=== PATIENT | female | born 1970 | race Caucasian/White ===

== ENCOUNTER → 2021-08-19 | Outpatient (CLI) | payer MEDICARE ==
[~2021-08-19] MED LIST: AMLODIPINE BESY10 MG PO; COLACE100 MG PO; DITROPAN 5 MG TA5 MG PO; FOLIC ACID 1 MG1 MG PO; LORTAB 7.5-3251 EACH PO; NADOLOL80 MG PO; PROTONIX40 MG PO; SEROQUEL300 MG PO; SIMVASTATIN20 MG PO; SYNTHROID25 MCG PO; TOPAMAX200 MG PO; VITAMIN D22000 UNIT PO
== END ==
LOC: EXRD 09:10
DX: M79.641 Pain in right hand (principal); M79.89 Other specified soft tissue disorders
CPT/HCPCS: 73110; 73130

== ENCOUNTER → 2021-09-09 | Outpatient (CLI) | payer MEDICARE | LOC: EMI 13:00 | DX: G43.709 Chronic migraine without aura, not intractable, without status migrainosus (principal); G44.89 Other headache syndrome; R56.9 Unspecified convulsions; G44.059 Short lasting unilateral neuralgiform headache with conjunctival injection and tearing (SUNCT), not intractable | CPT/HCPCS: 70551 ==